=== PATIENT | female | born 1945 | race Hispanic/Latino ===

== ENCOUNTER 2018-02-28 08:55 | Inpatient (IN) | payer MEDICARE, OTHER ==
[2018-02-28 09:22] VITALS: BMI 28.3
[2018-02-28] MEDS ORDERED: Sodium Chloride 0.9% 1,000 ML IV STA ×2 (09:52→14:14)
--- NOTE | 2018-02-28 10:23 | ED PDOC ---
HPI: Female Pain Time Seen by Provider: 02/28/18 09:31 Chief Complaint (Nursing): Female Genitourinary Chief Complaint (Provider): L flank pain, pelvic discomfort History Per: Patient History/Exam Limitations: no limitations Onset/Duration Of Symptoms: Days (3), Gradual Current Symptoms Are (Timing): Intermittent Episodes Severity: Moderate Quality Of Discomfort: Dull Associated Symptoms: Nausea. denies: Vomiting Alleviating Factors: None Additional Complaint(s): 72yo female c/o left flank pain, hematuria ongoing x2 days, had CT abd pelv in nov 2017 showing 5mm stone L renal pelvis, she assumes that migrated causing pain over last few days, went to [facility] for xray earlier in week but unknown results. Attempted to make appt w Dr Reeder but unable to see. Now states hematuria has improved and pain somewhat better this morning, denies fever but shes concerned because has not seen stone pass in urine. Took oxycodone x1 yesterday. Past Medical History Reviewed: Historical Data, Nursing Documentation, Vital Signs Vital Signs: Last Vital Signs Temp 98.6 F 02/28/18 09:21 Pulse 96 H 02/28/18 09:21 Resp 16 02/28/18 09:21 BP 160/87 H 02/28/18 09:21 Pulse Ox 97 02/28/18 09:21 - Medical History PMH: HTN, Hyperlipidemia, Kidney Stones, Chronic Kidney Disease - Surgical History Surgical History: Appendectomy, Cholecystectomy Other surgeries: hysterectomy - Family History Family History: States: Unknown Family Hx - Social History Current smoker - smoking cessation education provided: No - Immunization History Hx Tetanus Toxoid Vaccination: Yes Hx Influenza Vaccination: No Hx Pneumococcal Vaccination: Yes - Allergies Allergies/Adverse Reactions: Allergies Allergy/AdvReac Type Severity Reaction Status Date / Time No Known Allergies Allergy Verified 02/28/18 09:51 Review of Systems ROS Statement: Except As Marked, All Systems Reviewed And Found Negative Constitutional: Negative for: Fever Cardiovascular: Negative for: Chest Pain Respiratory: Negative for: Shortness of Breath Gastrointestinal: Positive for: Abdominal Pain, Other (flank pain) Genitourinary Female: Positive for: Hematuria, Pelvic Pain. Negative for: Incontinence, Vaginal Discharge, Vaginal Bleeding Musculoskeletal: Negative for: Neck Pain Skin: Negative for: Rash Neurological: Negative for: Weakness, Numbness Physical Exam - Reviewed Nursing Documentation Reviewed: Yes Vital Signs Reviewed: Yes - Physical Exam Appears: Positive for: Well, Non-toxic, No Acute Distress Head Exam: Positive for: ATRAUMATIC, NORMAL INSPECTION, NORMOCEPHALIC Skin: Positive for: Normal Color, Warm, DRY Eye Exam: Positive for: EOMI, Normal appearance, PERRL ENT: Positive for: Normal ENT Inspection Neck: Positive for: Normal, Painless ROM Cardiovascular/Chest: Positive for: Regular Rate, Rhythm Respiratory: Positive for: CNT, Normal Breath Sounds Gastrointestinal/Abdominal: Positive for: Normal Exam, Soft Back: Positive for: Normal Inspection Extremity: Positive for: Normal ROM Neurologic/Psych: Positive for: Alert, Oriented - Laboratory Results Result Diagrams: 02/28/18 10:15 02/28/18 10:15 - ECG O2 Sat by Pulse Oximetry: 97 Pulse Ox Interpretation: Normal Medical Decision Making Medical Decision Making: CT report from nov 2017 reviewed pt prefers to avoid additional CT radiation today Obtain US and bloodwork, UA/Ucx and initiate IVF bolus pt refused pain meds initially potential source infection/ SIRS identified at 1330, labs reviewed and elev WBC Lactate <2.0 Rocephin initiated after cultures obtained Meets sepsis but not severe sepsis criteria D/w Dr Reeder, not operating any longer, requests Dr Malloy for consult, call jennifer neo to make aware 3pm [employer] delivery consultant medicine Dr Mathew Disposition - Clinical Impression Clinical Impression: Sepsis, Pyelonephritis, Ureteral calculus, Hydroureteronephrosis - Patient ED Disposition Is Patient to be Admitted: Yes Counseled Patient/Family Regarding: Studies Performed, Diagnosis, Need For Followup - Disposition Disposition Time: 14:45 Condition: FAIR
[2018-02-28 10:35] LABS: BASO # 0.1 K/uL (0.0-0.2); BASO % 0.4 % (0.0-2.0); EOS % 0.1 % (0.0-4.0); HEMOGLOBIN 16.2 g/dL (12.0-16.0); LYMPH # 1.3 K/uL (1.0-4.3); LYMPH % 8.5 % (20.0-40.0); MEAN CELL VOLUME 87.6 fl (81.0-99.0); MEAN CORPUSCULAR HEMOGLOBIN 29.8 pg (27.0-31.0); MEAN PLATELET VOLUME 9.5 fl (7.2-11.7); MONO # 1.1 K/uL (0.0-0.8); MONO % 6.9 % (0.0-10.0); NEUT # 12.9 K/uL (1.8-7.0); NEUT % 84.1 % (50.0-75.0); PLATELET COUNT 195 K/uL (130-400); RBC 5.45 Mil/uL (3.80-5.20); RED CELL DISTRIBUTION WIDTH 13.9 % (11.5-14.5); WHITE BLOOD COUNT 15.3 K/uL (4.8-10.8)
[2018-02-28 10:53] LABS: ALB/GLOB RATIO 1.4 (1.0-2.1); ALBUMIN 4.3 g/dL (3.5-5.0); CALCIUM 10.5 mg/dL (8.4-10.2)
[2018-02-28 11:54] LABS: LYMPHOCYTE 12 % (20-50); MONOCYTE 3 % (0-10); MYELOCYTE 1 % (0-0); NEUTROPHIL 83 % (42-75); PLATELET ESTIMATE NORMAL (NORMAL); REACTIVE LYMPHOCYTES 1 % (0-0); TOTAL CELLS COUNTED 100
[2018-02-28 12:24] LABS: SQUAMOUS EPITHIAL 4 /hpf (0-5); URINE BACTERIA RARE (<OCC); URINE BILIRUBIN NEGATIVE (NEGATIVE); URINE BLOOD LARGE (NEGATIVE); URINE CLARITY CLOUDY (Clear); URINE COLOR YELLOW (YELLOW); URINE GLUCOSE (UA) NEG (NEGATIVE); URINE LEUKOCYTE ESTERASE TRACE Leu/uL (Negative); URINE PROTEIN 100 mg/dL (NEGATIVE); URINE UROBILINOGEN 0.2-1.0 mg/dL (0.2-1.0)
--- NOTE | 2018-02-28 12:29 | US ---
Date of service: 02/28/2018 PROCEDURE: Ultrasound of the Kidneys HISTORY: L flank pain hx recent kidney stone COMPARISON: None available. TECHNIQUE: Sonogram of the kidneys. FINDINGS: RIGHT KIDNEY: Measures: 10.0 cm. Normal in size, contour and echogenicity. No stone, solid mass lesion or hydronephrosis visualized. LEFT KIDNEY: Measures: 12.2 cm. Normal in size, contour and echogenicity. 4 mm nonobstructing left upper pole renal calculus. Trace left perinephric fluid incidentally noted. OTHER FINDINGS: None. IMPRESSION: Nonobstructing 4 mm left renal calculus. Trace left perinephric fluid. No additional abnormality.
[2018-02-28] MEDS ORDERED: Morphine 4 MG/ML VIAL IV STA (14:14)
[2018-02-28] MEDS ORDERED: Morphine 4 MG/ML VIAL ONE (14:33)
[2018-02-28] MEDS ORDERED: cefTRIAXone (Rocephin) 1 gm Inj ONE (14:33)
--- NOTE | 2018-02-28 14:59 | CT ---
Date of service: 02/28/2018 PROCEDURE: CT Abdomen and Pelvis without intravenous contrast HISTORY: L flank pain, hx renal colic COMPARISON: None. TECHNIQUE: Without contrast.. Contrast dose: 0 Radiation dose: Total exam DLP = 884.4 mGy-cm. This CT exam was performed using one or more of the following dose reduction techniques: Automated exposure control, adjustment of the mA and/or kV according to patient size, and/or use of iterative reconstruction technique. FINDINGS: LOWER THORAX: Unremarkable. LIVER: Unremarkable. No gross lesion or ductal dilatation. GALLBLADDER AND BILE DUCTS: Status post cholecystectomy. Dilated common bile duct up to 12 mm diameter. No calcified stones seen within common duct. Nevertheless, this may represent choledocholithiasis, biliary stricture, ampullary neoplasm. Less likely pancreatic neoplasm. No pancreatic mass identified on this noncontrast study. 12 mm is above what is expected for age related ectasia status post cholecystectomy. Consider evaluation with MRCP. PANCREAS: Unremarkable. No gross lesion or ductal dilatation. SPLEEN: Normal size and contour. No mass. Punctate calcifications consistent with old calcified granulomata. ADRENALS: Low-density left adrenal mass, 1.2 cm, measuring -6 Hounsfield units. Low-density right adrenal mass measuring 2.1 cm, measuring 1.5 Hounsfield units. Consistent with bilateral adrenal adenomas. KIDNEYS AND URETERS: Left hydroureteronephrosis. Obstructing distal left ureteral calculus just proximal to the ureterovesical junction, measuring 7 mm in greatest dimension. Extensive periureteric stranding along the course of the left ureter. Possible tiny stone fragments seen within the mid left ureter. This is best seen on series 3, image 130 and 131. No renal calculus. No renal mass. No right hydronephrosis. Small amount of tanna fluid adjacent to the mid left ureter extending along the posterior peritoneal reflection. VASCULATURE: Unremarkable. No aortic aneurysm. No aortic atherosclerotic calcification or mural plaque present. BOWEL: Unremarkable. No obstruction. No gross mural thickening. APPENDIX: Not identified. No secondary findings to suggest acute appendicitis, however. PERITONEUM: Unremarkable. No free fluid. No free air. LYMPH NODES: Unremarkable. No enlarged lymph nodes. BLADDER: Nondistended REPRODUCTIVE: Status post hysterectomy BONES: No acute fracture. Grade 1 anterolisthesis at L4-5 without spondylolysis. OTHER FINDINGS: None. IMPRESSION: Obstructing 7 mm distal left ureteral calculus. Left hydroureteronephrosis. Possible tiny stone fragments within mid left ureter. Extensive left periureteric stranding with minimal periureteric fluid at the level of the mid ureter. No perinephric fluid. Bilateral adrenal adenomas. Additional minor findings as above.
[2018-02-28 15:07] LABS: VENOUS BLOOD GAS BASE EXCESS -1.3 mmol/L (0.0-2.0); VENOUS BLOOD GAS PCO2 43 mmHg (40-60); VENOUS BLOOD GAS PO2 28 mm/Hg (30-55); VENOUS BLOOD PH 7.36 (7.32-7.43)
--- NOTE | 2018-02-28 16:24 | CP.PCM.PN ---
Subjective - Date & Time of Evaluation Date of Evaluation: 02/28/18 Time of Evaluation: 16:21 - Subjective Subjective: Patient examined chart and labs and Xray films and report reviewed discussed with Dr raymundo and patient will procede with Cysto and stent today. Mellissa Objective - Vital Signs/Intake and Output Vital Signs (last 24 hours): Temp Pulse Resp BP Pulse Ox 98.6 F 74 18 147/80 97 02/28/18 09:21 02/28/18 14:49 02/28/18 14:49 02/28/18 14:49 02/28/18 15:18 - Labs Labs: 02/28/18 10:15 02/28/18 10:15
--- NOTE | 2018-02-28 17:11 | RAD ---
Date of service: 02/28/2018 HISTORY: SOB COMPARISON: 04/04/2009. FINDINGS: LUNGS: No active pulmonary disease. PLEURA: No significant pleural effusion identified, no pneumothorax apparent. CARDIOVASCULAR: No atherosclerotic calcification present Normal. OSSEOUS STRUCTURES: No significant abnormalities. VISUALIZED UPPER ABDOMEN: Normal. OTHER FINDINGS: None. IMPRESSION: No active disease. No significant interval change compared to the prior examination(s).
[2018-02-28] MEDS ORDERED: Propofol 10 mg/ml Inj (20 ML) ONE (17:53)
[2018-02-28] MEDS ORDERED: Midazolam 2 MG/2 ML VIAL ONE (17:53)
[2018-02-28 18:05] LABS: PROTHROMBIN TIME 11.4 Seconds (9.8-13.1)
[2018-02-28 18:07] LABS: PARTIAL THROMBOPLASTIN TIME 29.2 Seconds (25.6-37.1)
[2018-02-28] MEDS ORDERED: GENTAMICIN IVPB ONE (18:16)
[2018-02-28] MEDS ORDERED: STERILE WATER FOR INJ IVPB ONE (18:16)
[2018-02-28] MEDS ORDERED: Lactated Ringer's 1,000 ML IV SCH (19:15)
[2018-02-28] MEDS ORDERED: Lactated Ringer's 1,000 ML IV ONE (19:20)
--- NOTE | 2018-02-28 19:42 | PCM.SURG1 ---
Surgeon's Initial Post Op Note - Surgeon's Notes Surgeon: Mellissa Assistant Scientist: MARLEE Type of Anesthesia: General Mask Anesthesia Administered By: Staff Pre-Operative Diagnosis: Left ureteral calculi Operative Findings: Left ureteral calculi Post-Operative Diagnosis: same Operation Performed: Cystoscopy insertion jj stent Specimen/Specimens Removed: na Estimated Blood Loss: EBL {In ML}: 0 Blood Products Given: N/A Drains Used: No Drains Post-Op Condition: Good Date of Surgery/Procedure: 02/28/18 Time of Surgery/Procedure: 19:42
[2018-02-28] MEDS ORDERED: Morphine 4 MG/ML VIAL IVP PRN (21:38)
[2018-02-28] MEDS ORDERED: Gentamicin 80mg/50ml NS 160 MG/100 ML BAG IVPB SCH (21:45)
[2018-03-01 03:58] VITALS: PULSE 78
[2018-03-01 07:37] LABS: HEMOGLOBIN 13.7 g/dL (12.0-16.0); MEAN CELL VOLUME 90.5 fl (81.0-99.0); MEAN CORPUSCULAR HEMOGLOBIN 30.2 pg (27.0-31.0); MEAN CORPUSCULAR HGB CONC 33.3 g/dL (33.0-37.0); RBC 4.54 Mil/uL (3.80-5.20); RED CELL DISTRIBUTION WIDTH 13.7 % (11.5-14.5); WHITE BLOOD COUNT 8.7 K/uL (4.8-10.8)
[2018-03-01 07:50] LABS: ALB/GLOB RATIO 1.1 (1.0-2.1); ALBUMIN 3.1 g/dL (3.5-5.0); CALCIUM 9.7 mg/dL (8.4-10.2)
[2018-03-01 08:42] VITALS: BP 157/80; RESP 20; TEMP 97.8; O2SAT 93
[2018-03-01] MEDS ORDERED: Cholecalciferol 1,000 INTLU TAB PO SCH (09:00)
[2018-03-01] MEDS ORDERED: [UNRECOGNIZED DRUG - OTHER] PO SCH (09:00)
--- NOTE | 2018-03-01 13:15 | CARD ---
APPROVED REPORT Date of service: 02/28/2018 EKG Measurement Heart [id number] <Conclusion> Normal sinus rhythm Right bundle branch block Abnormal ECG
--- NOTE | 2018-03-02 02:08 | CON ---
DATE: 02/28/2018 LOCATION: Emergency Room at [facility]. CHIEF COMPLAINT: Left flank pain. HISTORY OF PRESENT ILLNESS: This patient had severe left flank pain, which is radiating to the groin and presented in the [place] [facility]. She has a history of a stone in the kidney and had seen Dr. Reeder in the past, but the stone with a non-obstructing position, the patient elected observation. She recently had a CAT scan as an outpatient, but she does not have any results. She tried to see Dr. Reeder, but Dr. Reeder was not available, and she was referred to me. She denies history of stones prior to this one noted on the CAT scan by Dr. Reeder. She has no history of instrumentation. She does have left flank pain, radiating to the groin, which has been intense, but improved with medication here in the emergency room. She has no other complaints. REVIEW OF SYSTEMS: RESPIRATORY SYSTEM: The patient has no shortness of breath. GASTROINTESTINAL: The patient is nauseous, but has not vomited. GENITOURINARY: The patient has left flank pain, radiating to the groin and urinary frequency. ORTHOPEDIC HISTORY: Noncontributory. GYNECOLOGIC HISTORY: Noncontributory. SOCIAL AND FAMILY HISTORY: The patient lives in [place]. She neither smokes nor drinks. NEUROLOGICAL HISTORY: Negative. PHYSICAL EXAMINATION: VITAL SIGNS: Within normal limits. HEAD, EARS, EYES, NOSE AND THROAT: Within normal limits. NECK: Supple. There are no bruits, nodes or masses. LUNGS: Clear bilaterally. There are no rales or rhonchi. BREASTS: Normal. ABDOMEN: Soft. Nontender. There are no masses or organomegaly. There is no palpable renal mass. GENITOURINARY: Vaginal examination refused. EXTREMITIES: Normal. NEUROLOGICAL: Normal. INTEGUMENT: Normal. LABORATORY DATA: I reviewed the lab tests, which show elevated white count of 15,000. I have also reviewed the CAT scan of the abdomen and pelvis reports, and the film is showing hydronephrosis secondary to a 7-mm calculus just proximal to the UVJ. IMPRESSION: My impression is left ureterovesical junction calculi. PLAN: After reviewing the documents with the patient, elevated white count and the stone and its locations, we discussed the various options for treatment with the patient including watchful waiting and stent insertion. We discussed the pros and cons of each, and the patient likes to proceed with the stent insertion, and this will be done. Therefore, the decision was made to proceed with the stent insertion at the next available OR time. The patient is aware that this will be done today if the operating room is available. If not, it will be done tomorrow morning. Felice Malloy MD
--- NOTE | 2018-03-02 02:20 | OP ---
PROCEDURE DATE: 02/28/2018 PREOPERATIVE DIAGNOSIS: Left ureterovesical junction calculi. POSTOPERATIVE DIAGNOSIS: Left ureterovesical junction calculi. PROCEDURES: Cystoscopy, insertion of double-J stent. FINDINGS: Lower ureteral stone. SURGEON: Felice Malloy MD DESCRIPTION OF PROCEDURE: The procedure is as follows: The patient was asked to sign a detailed informed consent after explaining all risks, complications, and alternatives to this procedure. She was brought into the room. A time-out was taken according to the rules and regulations of [facility]. She was draped and prepped in the usual manner. She had received prophylactic antibiotics. The patient was cystoscoped with #21 Storz panendoscope. Left ureteral orifice was visualized. It was cannulized with an 0.038 guidewire, and this was passed above the stone up to the renal pelvis. A 6-Italian variable length double-J stent was then passed over the guidewire and positioned properly with the distal end in the left renal pelvis and the proximal end protruding from the left ureteral orifice. The stent was deployed leaving a good curl within the bladder and a good curl within the renal pelvis. The patient tolerated this well. The bladder was drained. She was sent to the recovery room in good condition. She was given detailed instructions regarding the need for followup and suggest that she follow up in our office within one week. We also discussed this with the covering physician, Dr. Ferguson. The patient will be discharged if okay tomorrow. Felice Malloy MD
--- NOTE | 2018-03-02 16:19 | CP.PCM.HP ---
History of Present Illness - History of Present Illness History of Present Illness: This is a 72 y/o female admitted for left flank pain and hematuria for 2 days which has gotten worst in the pain meds b past few hours prior to Er visit. Claims that she has a 5 mm kidney stone note via CT in 2018. She follows up wit paty Reeder and was being observed till this episode. She took took pain meds but to no avail. Ct scan at the ER revealed hydroneprhosis and hydroureter with obstructing 7 mm stone at the distal ureter. Labs revealed elevated WBC, There was no fever. Dr Malloy was called cystoscopy, removal of stone and stent placement was performed. She has a hx of HTn and hyperlipidemia. and renal stone. Patient claims to have relief from pain since the procedure last night. Present on Admission - Present on Admission Any Indicators Present on Admission: No History of DVT/PE: No History of Uncontrolled Diabetes: No Urinary Catheter: No Decubitus Ulcer Present: No Past Patient History - Past Social History Smoking Status: Never Smoked - CARDIAC Hx Hypertension: Yes - PULMONARY Hx Respiratory Disorders: No - NEUROLOGICAL Hx Neurological Disorder: No - HEENT Other/Comment: wears glasses - RENAL Hx Chronic Kidney Disease: Yes Hx Kidney Stones: Yes - PSYCHIATRIC Hx Emotional Abuse: No Hx Physical Abuse: No - SURGICAL HISTORY Hx Appendectomy: Yes Hx Cholecystectomy: Yes - ANESTHESIA Hx Anesthesia: Yes Hx Anesthesia Reactions: No Hx Malignant Hyperthermia: No Meds Home Medications: Home Medication List Medication Instructions Recorded Confirmed Type Acetaminophen with Codeine 1 each PO BID PRN #15 tablet 03/01/18 Rx [Tylenol with Codeine #3 Tablet] Ciprofloxacin HCl [Cipro] 500 mg PO BID #14 tablet 03/01/18 Rx Allergies/Adverse Reactions: Allergies Allergy/AdvReac Type Severity Reaction Status Date / Time No Known Allergies Allergy Verified 02/28/18 09:51 Physical Exam - Eye Exam Eye Exam: Normal appearance - ENT Exam ENT Exam: Mucous Membranes Moist - Neck Exam Neck exam: Positive for: Normal Inspection - Respiratory Exam Respiratory Exam: Clear to Auscultation Bilateral - Cardiovascular Exam Cardiovascular Exam: REGULAR RHYTHM - GI/Abdominal Exam GI & Abdominal Exam: Normal Bowel Sounds - Neurological Exam Neurological exam: CN II-XII Intact - Psychiatric Exam Psychiatric exam: Normal Mood Results - Vital Signs Recent Vital Signs: Last Vital Signs Temp 97.8 F 03/01/18 08:41 Pulse 78 01/19/19 08:41 Resp 20 03/01/18 08:41 BP 157/80 H 03/01/18 08:41 Pulse Ox 93 L 03/01/18 08:41 - Labs Result Diagrams: 03/01/18 05:30 03/01/18 05:30 Assessment & Plan (1) Ureteral calculus Status: Acute (2) Hydroureteronephrosis Status: Acute (3) Hematuria Status: Acute (4) Hypertension Status: Acute (5) Hyperlipidemia Status: Acute - Assessment and Plan (Free Text) Plan: Pain meds Discussed plans to remove stent in 1 week Will send patient home on Cipro 500 bid x 7 days and pain meds Advised to follow up with Urologist next week.
--- NOTE | 2018-03-04 11:55 | RAD ---
Date of service: 02/28/2018 PROCEDURE: Intraoperative fluoroscopy HISTORY: FLUOROSCOPY COMPARISON: Not available TECHNIQUE: Intraoperative fluoroscopy was provided for ureteral stent insertion. FINDINGS: A single fluoroscopic spot film is submitted. Total time of fluoroscopy is less than 1 hr. Cumulative dose is not reported. IMPRESSION: Fluoroscopy provided.
--- NOTE | 2018-03-04 13:00 | PQF ---
PROVIDER RESPONSE TEXT: Sepsis ruled in. Wbc >15 with compromised renal functions. REVIEWER QUERY TEXT: Documentation Clarification Your help is requested in clarifying the following clinical documentation, if you can please further specify in the medical record and discharge summary if diagnoses of sepsis and pyelonephritis were ru led in or out. The patient's Clinical Indicators include: ER Physician Documentation Report documented "sepsis and pyelonephritis." Query created by: Judy Meyer on 03/04/2018 10:09 AM Electronically signed by: Henrry Ferguson MD 03/04/2018 12:57 PM
--- NOTE | 2018-03-04 13:12 | PQF ---
PROVIDER RESPONSE TEXT: CKD not a medical diagnosis for this patient, judy secondary to renal calculus REVIEWER QUERY TEXT: Kidney Disease, Chronic CKD Stage Chronic Kidney Disease (CKD) is documented in the Medical Record. Please specify the disease stage ( includes probable or suspected) Such as: -- Chronic kidney disease Stage 1 -- Chronic kidney disease Stage 2 -- Chronic kidney disease Stage 3 -- Chronic kidney disease Stage 4 -- Chronic kidney disease Stage 5 -- Chronic kidney disease Stage 5, requiring dialysis -- End Stage Renal Disease -- Other, please specify BUN:30->27 Creatinine: 1.6->1.3 Est GFR( Amer):38->49 Est GFR (Non-Af Amer):32-> 40 IVF 1,000 mls/hr x 2 in ER and Post Op Anesthesia: IVF 50 ccs./hr.x 20 hrs. H and P: hx. CKD: yes Stages are defined by the [employer] as follows: CKD Stage I GFR >= 90 ml / min per 1.73 m2 and persistent albuminuria CKD Stage 2 GFR between 60 and 89 with persistent albuminuria CKD Stage 3 GFR between 30 and 59 CKD Stage 4 GFR between 15 and 29 CKD Stage 5 GFR between <15 or End Stage Renal Disease The patient's Clinical Indicators include: ----- Query created by: Vanessa Holley on 03/04/2018 10:46 AM Electronically signed by: Henrry Ferguson MD 03/04/2018 1:09 PM
--- NOTE | 2018-03-04 13:12 | PQF ---
PROVIDER RESPONSE TEXT: Acute kidney injury related to renal calculus with creatinine coming down from 1.6 to 1.3 REVIEWER QUERY TEXT: Clarification of Clinical Diagnostic Findings Please clarify if there is an associated diagnosis to go along with the creatinine shift: 1.6->1.3 in a patient with a history of CKD OR: Disagree OR: Other explanation of clinical findings BUN:30->27 Creatinine: 1.6->1.3 Est GFR( Amer):38-.49 Est GFR (Non-Af Amer):32-.40 IVF 1,000 mls/hr x 2 in ER and Post Op Anesthesia: IVF 50 ccs./hr.x 20 hrs. ER: Clinical Impression includes: Sepsis, Pyelonephritis, Ureteral calculus, Hydroureteronephrosis H and P: includes: (1) Ureteral calculus Status: Acute (2) Hydroureteronephrosis Status: Acute (3) Hematuria Status: Acute (4) Hypertension Status: Acute (5) Hyperlipidemia Status: Acute H and P hx. CKD: yes 03/01 Op note: Cysto with double- J stent insertion The patient's Clinical Indicators include: --- Query created by: Vanessa Holley on 03/04/2018 10:52 AM Electronically signed by: Henrry Ferguson MD 03/04/2018 1:09 PM
== END 2018-03-01 13:53 | disposition home or self-care (01) | DRG 854 ==
LOC: H.ER 08:55 → H.ERHOLD 15:10 → H.MEDSURG1 21:04
PROVIDERS: ADMIT Family Medicine; ATTEND Family Medicine
PROC: 0T778DZ Dilation of Left Ureter with Intraluminal Device, Via Natural or Artificial Opening Endoscopic (ICD-10-PCS; principal; 2018-02-28 17:30)
DX: A41.9 Sepsis, unspecified organism (principal); N13.6 Pyonephrosis; N17.9 Acute kidney failure, unspecified; E78.5 Hyperlipidemia, unspecified; I12.9 Hypertensive chronic kidney disease with stage 1 through stage 4 chronic kidney disease, or unspecified chronic kidney disease; N18.9 Chronic kidney disease, unspecified; R31.9 Hematuria, unspecified